=== PATIENT | female | born 1960 | race Caucasian/White ===

== ENCOUNTER → 2016-07-02 | Outpatient (CLI) | payer OTHER ==
[~2016-07-02] MED LIST: ABL/5 PO; ALBU0.5N2 INH; ALBUAER19 INH; ASPI81TA21 PO; ATEN-173 PO; ATOR-14 PO; CLOP1TAB15 PO; CLR10 PO; FERR325T5 PO; HYDR1TAB2 PO; ISOS120T5 PO; MECL1TAB40 PO; MONT1TAB3 PO; NTRGSL/4 UT; OMEG10007 PO; PANT40TA PO; SALI0.6517 NAE; TIOTCAP INH
--- NOTE | 2016-07-02 14:45 | DIAGNOSTIC IMAGING REPORT ---
PA CHEST RADIOGRAPH AND UPRIGHT AND SUPINE AP RADIOGRAPHS OF THE ABDOMEN CLINICAL HISTORY: Right-sided abdominal pain COMPARISON STUDY: No previous studies for comparison. FINDINGS: There are postsurgical findings within the right hemithorax. There is right hemithorax volume loss which is likely postsurgical. Right lower lung opacity is noted, including a 1.9 cm nodular opacity. There is widening of right paratracheal stripe which may be postsurgical. There is no evidence of pulmonary edema. Cardiac size is normal. Mediastinal contours are normal. There is no free air. There are cholecystectomy clips. There are left pelvic surgical clips. The bowel gas pattern is normal. IMPRESSION: 1. No free air or evidence of bowel obstruction. 2. Postsurgical findings within the right hemithorax with expected volume loss. Indeterminate right lower lung opacity, including a 1.9 cm nodular opacity. The findings could reflect an infectious process such as pneumonia. Alternatively, atelectasis or a pulmonary nodule could appear similar. Short-term radiographic follow up is recommended to exclude a pulmonary nodule. Electronically signed by: Ramiro Gonzales M.D. 07/02/2016 2:43 PM Dictated Date/Time: 07/02/2016 2:40 PM
== END | disposition home or self-care (01) ==
LOC: C.RAD1850 14:05
PROVIDERS: ATTEND Nurse Practitioner Family
DX: R10.9 Unspecified abdominal pain (principal); R91.8 Other nonspecific abnormal finding of lung field

== ENCOUNTER → 2016-12-17 | Outpatient (CLI) | payer OTHER ==
--- NOTE | 2016-12-18 15:12 | MAMMOGRAPHY REPORT ---
BILATERAL DIGITAL SCREENING MAMMOGRAM TOMOSYNTHESIS WITH CAD: 12/17/2016 CLINICAL HISTORY: Routine screening. Patient has no complaints. TECHNIQUE: Breast tomosynthesis in addition to standard 2D mammography was performed. Current study was also evaluated with a Computer Aided Detection (CAD) system. COMPARISON: Comparison is made to exams dated: 12/15/2015 mammogram, 08/04/2014 mammogram, 08/03/2013 ma mmogram, 07/31/2012 mammogram - [facility], 07/31/2011 mammogram, and 07/27/2010 mammo gram - [facility]. BREAST COMPOSITION: The tissue of both breasts is heterogeneously dense, which may obscure small mas ses. FINDINGS: There is expected architectural distortion in the upper outer quadrant of the left breast, at the site of prior surgical excision. There are scattered benign calcifications bilaterally. No s uspicious mass, architectural distortion or cluster of microcalcifications is seen. IMPRESSION: ACR BI-RADS CATEGORY 2: BENIGN There is no mammographic evidence of malignancy. A 1 year screening mammogram is recommended. The pa tient will receive written notification of the results. Approximately 10% of breast cancers are not detected with mammography. A negative mammographic report should not delay biopsy if a clinically suggestive mass is present. Ro Riley M.D. ay/:12/17/2016 16:43:00 Division Operations Specialist: Maria Peña, [facility] letter sent: Normal 1/2 BI-RADS Code: ACR BI-RADS Category 2: Benign
== END | disposition home or self-care (01) ==
LOC: C.MAMM 13:09
PROVIDERS: ATTEND Nurse Practitioner Family
DX: Z12.31 Encounter for screening mammogram for malignant neoplasm of breast (principal)

== ENCOUNTER 2017-08-15 16:32 | Emergency (ER) | payer OTHER ==
[~2017-08-15] VITALS: Ht 160 cm; Wt 56.0 kg
[~2017-08-15 16:32] MED LIST changes: +ASPI-319 PO; -ASPI81TA21 PO
[2017-08-15 16:43] VITALS: TEMP 37; Ht 160 cm; Wt 56.0 kg
--- NOTE | 2017-08-15 17:25 | EMERGENCY ROOM VISIT NOTE ---
History First contact with patient: 16:59 Chief Complaint: REFERRED BY DOCTOR Stated Complaint: REFERRAL - JESSICA FREEDMAN History of Present Illness 56F with a PMHx of conservatively managed AAA, Stave IV Lung Ca s/p resection, CA s/p Stets p/w Abdominal pain x 48 hours with ecchymosis over the abdomen. Coughing makes the pain worse. She states that there's a band around her lower abdomen where the pain is. The pain has been worsening since Saturday. She was seen by her PCP and sent her for possible AAA leakage. Pt went to the [place] ER in Saturday where she had a CT of her abdomen that was normal. Per patient [place] labs were significant for an elevated WBC count. Patient states that her IV site from [place] took 2+ hours to stop bleeding which was unusual for her. Yesterday she also noticed some ecchymosis over her abdomen. Patient has never had a bleeding disorder in the past. She has been on ASA and Plavix since 2006 and never had issues with bleeding or bruising. ROS: Diarrhea a few days ago that his improved, some type of sinus infection last week. Pt is here with her daughter and son in law. Daughter is a nurse at [employer] in [place]. 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 Review of Systems See HPI for pertinent positives and negatives. A total of ten systems were reviewed and were otherwise negative. Constitutional: No fever, No chills Respiratory: + shortness of breath, + dyspnea on exertion, + dyspnea at rest , No cough, No sputum, No wheezing Cardiovascular: No chest pain, No edema, No claudication, No palpitations Abdomen: + pain, + diarrhea, No nausea, No vomiting, No constipation Musculoskeletal: No joint pain Genitourinary - Female: No dysuria Neurologic: No memory loss Social History Smoking Status: Current Every Day Smoker Current/Historical Medications Scheduled Albuterol Sulf (Proventil 0.083% 2.5MG/3ML), 2.5 MG INH Q4H Amlodipine (Norvasc), 2.5 MG PO DAILY Amoxicillin (Amoxicillin), 1 TAB PO BID Ampicillin (Ampicillin), 1 CAP PO QID Aspirin Enteric Coated (Ecotrin Or Generic), 81 MG PO DAILY Atenolol (Tenormin), 12.5 MG PO DAILY Atorvastatin (Lipitor), 20 MG PO DAILY Bupropion HCl (Bupropion HCl Sr), 150 MG PO DAILY Cholecalciferol (Vitamin D3), 2,000 INTER.UNIT PO DAILY Clopidogrel (Plavix), 75 MG PO DAILY Estradiol Vaginal (Vagifem), 1 TAB PV 3XWK Ferrous Sulfate (Ferrous Sulfate), 650 MG PO DAILY Fish Oil (Oxford-3), 1,000 MG PO TID Home O2 Therapy (Oxygen), 2-3 LITERS NA UD Isosorbide Mononitrate (Isosorbide Mononitrate ER), 60 MG PO DAILY Levothyroxine Sodium (Levothyroxine Sodium), 25 MCG PEG DAILY Loratadine (Claritin), 10 MG PO DAILY Magnesium Oxide (Mag-Ox), 400 MG PO DAILY Meclizine Hcl (Meclizine Hcl), 12.5 MG PO TID Montelukast Sodium (Singulair), 10 MG PO QPM Pantoprazole (Protonix), 40 MG PO BID Salmeterol Xinafoate (Serevent Diskus), 1 PUFF INH Q12 Tiotropium [place] (Spiriva Respimat), 2 PUFFS INH DAILY Tolterodine Tartrate (Tolterodine Tartrate), 2 MG PO BID Scheduled PRN Albuterol Hfa (Ventolin Hfa), 2 PUFFS INH Q4H PRN for Rescue Nitroglycerin (Nitrostat), 0.4 MG UT UD PRN for Chest Pain Physical Exam Vital Signs Date Time Temp Pulse Resp B/P (MAP) Pulse Ox O2 Delivery O2 Flow Rate FiO2 08/15/17 19:25 73 18 101/65 97 Room Air 08/15/17 18:02 65 14 119/75 98 Nasal Cannula 2.0 08/15/17 16:43 37.0 98 22 112/61 93 Room Air Physical Exam Gen: No acute distress. HEENT: Head - normocephalic and atraumatic. Pupils are equal, round, and reactive to light. Extraocular eye muscles are intact and sclera are anicteric. Ears - bilaterally patent canals with noninjected tympanic membranes and no evidence of hemotympanum. Nose - moist nasal mucosa without discharge. Mouth - moist buccal mucosa. Oropharynx is nonerythematous and there is no tonsillar exudate or edema noted. Neck: Supple; no JVD, nuchal rigidity, cervical lymphadenopathy, or auscultated bruits. Heart: Regular rate and rhythm. There is a normal S1 and S2 with no murmurs, clicks, or gallops appreciated. Lungs: Clear to auscultation bilaterally with no wheezes, rales, or rhonchi. Pt is wearing oxygen. Abdomen: Soft, distended, with good bowel sounds. There are no palpable pulsatile masses or hepatosplenomegaly. There is no guarding, rigidity, or rebound noted. Area of ecchymosis over the midline of her abdomen, from the umbilicus to 3cm above the pubic symphysis, 2cm wide, rectangular shape. There is also a circular 2cm area of ecchymosis over the right abdomen. Abdomen is diffusely TTP in all quadrants. Extremities: No evidence of cyanosis, clubbing, or edema. There are easily palpable peripheral pulses. Neuro:The patient is awake and alert, oriented to day, time, and place. Muscle strength is 5/5 in all 4 extremities. 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 There are no cerebellar signs. Medical Decision & Procedures ER Provider Diagnostic Interpretation: ADDENDUM Upon further review of the case, there is a right rectus sheath hematoma measuring 2.7 x 1.8 cm in transverse and AP dimension. Electronically signed by: Kolton Son M.D. 08/15/2017 7:38 PM Dictated Date/Time: 08/15/2017 7:37 PM ORIGINAL REPORT CHEST COMBO ANGIO DISSECTION, ANGIO ABD/PELVIS WITH CONTRAST HISTORY: 56 years-old Female presents with acute chest and abdominal pain with bruising COMPARISON: Acute abdominal series radiographs 07/02/2016 TECHNIQUE: CTA of the chest, abdomen and pelvis was obtained both with and without the use of 116 mL Optiray 320 IV contrast. 3-D coronal and sagittal MIPS were obtained from the axial data set and were submitted for review. All measurements were obtained according to NASCET criteria. A dose lowering technique was used consistent with the principals of ALARA. FINDINGS: CTA CHEST: No intramural hematoma identified on the noncontrast scan. The heart is normal in size without pericardial effusion. Coronary arterial calcifications are noted without aortic aneurysm or dissection identified. There is moderate mixed plaquing about the thoracic aorta and proximal great vessels which appear patent. There is no thoracic aortic dissection or aneurysm. The pulmonary arterial tree is opacified to level of the subsegmental branches and demonstrates no focal filling defects to suggest pulmonary thromboembolic disease. CT CHEST: Mildly heterogeneous thyroid without dominant nodule identified. Mildly prominent 7 mm AP window lymph node. No pathologic adenopathy identified. Postoperative changes of the right lung with suggested prior right upper and middle lobectomy. Severe upper lung predominant centrilobular emphysema. High attenuating material within the subpleural space of the right lung base suggest prior pleurodesis. Areas of pleural nodularity measuring up to 6 mm suggest pleural disease is changes with scarring. There is a 3 mm solid nodule of the apical posterior segment left upper lobe. Ill-defined groundglass opacities of the lingula suggest atelectasis or scarring. Central airways are patent. Soft tissues are unremarkable. Bones appear intact. Multilevel degenerative changes about the thoracic spine. CTA ABDOMEN/PELVIS: Moderate mixed plaquing of the abdominal aorta with fusiform aneurysmal dilation of the intrarenal segment, 2.9 x 3.1 cm in AP and transverse dimension. No aneurysm dilation of the iliac vasculature. No dissection. The iliac arteries and imaged common femoral, superficial femoral and profunda femoris arteries also appear widely patent. The celiac trunk, superior and inferior mesenteric arteries are widely patent. Mild mixed plaquing at the origin of the renal arteries, left greater than right without high-grade stenosis. Single renal arteries are noted bilaterally. No high-grade stenosis or proximal branch occlusion identified. CT ABDOMEN/PELVIS: Prior cholecystectomy. The liver, spleen, pancreas and adrenal glands are within normal limits. 9 mm low attenuating lesion of the lateral aspect interpolar right kidney suggests renal cyst. Kidneys are otherwise unremarkable. Moderate urinary bladder distention. No obstructive uropathy. Postoperative changes from prior hysterectomy. No adnexal mass lesions identified. It is no bulky adenopathy identified. No bowel obstruction. Colonic diverticulosis without CT evidence of acute diverticulitis. Moderate stool volume suggests constipation. The appendix is not definitively seen. No secondary signs of acute appendicitis. No mesenteric inflammatory changes or ascites. Soft tissues are unremarkable with small fat filled periumbilical hernia, diastases 1.1 cm. Bones appear to be intact. IMPRESSION: 1. Fusiform aneurysmal dilation of the infrarenal abdominal aorta, 2.9 x 3.1 cm without dissection. 2. Moderate mixed plaquing of the aorta without high-grade stenosis or proximal branch occlusion identified. 3. Postoperative changes about the right lung from prior right upper and middle lobectomy with pleurodesis. 4. Emphysema. 5. Suggested constipation. 6. Prior hysterectomy and cholecystectomy. 7. Additional findings as above. Laboratory Results 08/15/17 18:05 Red Blood Count 4.14, Mean Corpuscular Volume 95.2, Mean Corpuscular Hemoglobin 32.1, Mean Corpuscular Hemoglobin Concent 33.8, Mean Platelet Volume 9.5, Neutrophils (%) (Auto) 58.8, Lymphocytes (%) (Auto) 31.6, Monocytes (%) (Auto) 5.7, Eosinophils (%) (Auto) 3.3, Basophils (%) (Auto) 0.4, Neutrophils # (Auto) 5.76, Lymphocytes # (Auto) 3.09, Monocytes # (Auto) 0.56, Eosinophils # (Auto) 0.32, Basophils # (Auto) 0.04 08/15/17 18:05 Test 08/15/17 18:05 08/15/17 18:14 08/15/17 18:25 White Blood Count 9.79 K/uL (4.8-10.8) Red Blood Count 4.14 M/uL (4.2-5.4) Hemoglobin 13.3 g/dL (12.0-16.0) Hematocrit 39.4 % (37-47) Mean Corpuscular Volume 95.2 fL (80-100) Mean Corpuscular Hemoglobin 32.1 pg (25-34) Mean Corpuscular Hemoglobin Concent 33.8 g/dl (32-36) Platelet Count 274 K/uL (130-400) Mean Platelet Volume 9.5 fL (7.4-10.4) Neutrophils (%) (Auto) 58.8 % Lymphocytes (%) (Auto) 31.6 % Monocytes (%) (Auto) 5.7 % Eosinophils (%) (Auto) 3.3 % Basophils (%) (Auto) 0.4 % Neutrophils # (Auto) 5.76 K/uL (1.4-6.5) Lymphocytes # (Auto) 3.09 K/uL (1.2-3.4) Monocytes # (Auto) 0.56 K/uL (0.11-0.59) Eosinophils # (Auto) 0.32 K/uL (0-0.5) Basophils # (Auto) 0.04 K/uL (0-0.2) RDW Standard Deviation 49.0 fL (36.4-46.3) RDW Coefficient of Variation 14.2 % (11.5-14.5) Immature Granulocyte % (Auto) 0.2 % Immature Granulocyte # (Auto) 0.02 K/uL (0.00-0.02) Prothrombin Time 10.7 SECONDS (9.0-12.0) Prothromb Time International Ratio 1.0 (0.9-1.1) Activated Partial Thromboplast Time 25.7 SECONDS (21.0-31.0) Partial Thromboplastin Ratio 1.0 Est Creatinine Clear Calc Drug Dose 47.5 ml/min Estimated GFR () 64.5 Estimated GFR (Non- 55.6 BUN/Creatinine Ratio 6.7 (10-20) Calcium Level 8.5 mg/dl (8.5-10.1) Magnesium Level 2.2 mg/dl (1.8-2.4) Total Bilirubin 0.4 mg/dl (0.2-1) Direct Bilirubin 0.1 mg/dl (0-0.2) Aspartate Amino Transf (AST/SGOT) 19 U/L (15-37) Alanine Aminotransferase (ALT/SGPT) 24 U/L (12-78) Alkaline Phosphatase 66 U/L (45-117) Troponin I < 0.015 ng/ml (0-0.045) Total Protein 6.9 gm/dl (6.4-8.2) Albumin 3.4 gm/dl (3.4-5.0) Bedside Hemoglobin 13.6 g/dl (12.0-16.0) Bedside Hematocrit 40 % (37-47) Bedside Sodium 140 mEq/L (135-144) Bedside Potassium 3.3 mEq/L (3.3-5.0) Bedside Chloride 100 mEq/L (101-112) Bedside Total CO2 29 mEq/l (24-31) Anion Gap 15.0 mmol/L (16-25) Bedside Blood Urea Nitrogen 7 mg/dl (7-18) Bedside Creatinine 1.1 mg/dl (0.6-1.3) Bedside Glucose (other) 96 mg/dl (70-99) Bedside Ionized Calcium (Cee) 1.14 mmol/l (1.12-1.32) Urine Color YELLOW Urine Appearance CLEAR (CLEAR) Urine pH 8.0 (4.5-7.5) Urine Specific [place] 1.008 (1.000-1.030) Urine Protein NEG (NEG) Urine Glucose (UA) NEG (NEG) Urine Ketones NEG (NEG) Urine Occult Blood 1+ (NEG) Urine Nitrite NEG (NEG) Urine Bilirubin NEG (NEG) Urine Urobilinogen NEG (NEG) Urine Leukocyte Esterase NEG (NEG) Urine WBC (Auto) 1-5 /hpf (0-5) Urine RBC (Auto) 5-10 /hpf (0-4) Urine Hyaline Casts (Auto) 0 /lpf (0-5) Urine Epithelial Cells (Auto) 10-20 /lpf (0-5) Urine Bacteria (Auto) 1+ (NEG) Medications Administered Medications (Trade) Dose Ordered Sig/Ninfa Route Start Time Stop Time Status Last Admin Dose Admin Sodium Chloride 1,000 ml @ 200 mls/hr Q5H STAT IV 08/15/17 17:26 08/15/17 22:25 08/15/17 18:04 200 MLS/HR Medical Decision The patient's care and disposition was discussed with Dr. Khan, Attending ED Physician. This is a 56F with belly pain. Differential diagnosis include AAA rupture, platelet disorder, appendicitis, diverticulitis, inflammatory bowel disease, renal colic, PUD, biliary pathology, pancreatitis, mesenteric ischemia, aortic pathology, infections, genitourinary, UTI, perforated viscus, as well as others were entertained. Triage Nursing notes were reviewed. ED Course included an extensive history and physical exam, labs, EKG and imaging. 5:00pm - Pt was seen and examined at bedside. 5:25pm - Case was discussed with Dr. Khan. 7:00pm - Imaging was reviewed with Dr. Khan, 8:00pm - After discussing the case with pharmacy a 10 day course of Amoxicillin was decided upon. Updated patient on results. 8:45pm - Updating patient again regarding results and reiterated the plan. The pt was informed about the findings as listed above. All questions were answered. Return instructions were outlined and the patient was discharged in good condition. The patient was referred to PCP for recheck of the current condition. We recommend tomorrow. Recheck of hemoglobin. Head Trauma GCS Score: 15 Impression Primary Impression: Rectus sheath hematoma Departure Information Dispostion Home / Self-Care Condition GOOD Prescriptions Ampicillin (AMPICILLIN) 500 Mg Cap 1 CAP PO QID for 7 Days, #28 CAP Prov: Edi Mercedes M.D. 08/15/17 Amoxicillin (Amoxicillin) 875 Mg Tab 1 TAB PO BID for 10 Days, #19 TAB Prov: Edi Mercedes M.D. 08/15/17 Referrals Nolvia Freedman (PCP) Patient Instructions My [facility] Additional Instructions There is no leak of your aorta on the CT Scan. The CT Scan did find something called a rectus sheath hematoma. This is a bleed into one of the abdominal muscles. This is likely the source of your abdominal pain. Rectus sheath hematomas can become large and painful. We recommend holding your Aspirin for one week until your abdominal pain resolves. We also recommend that you follow up with your primary care provider tomorrow () for a check of your hemoglobin level. Your hemoglobin level in the ER was 13.3. Your records from [place] were also reviewed. Your urine is growing a bacteria called Enterococcus. After consulting with our pharmacist we recommend taking Ampicillin every 6 hours for 7 days. You have been given a dose of Ampicillin in the ER. Return to the ER if your abdominal pain gets unbearable. We aware that movements such as straining and coughing may worsen your abdominal pain and delay rectus muscle healing. Resident Involvement: Resident Care Provided Care Provided: Adult ED
[2017-08-15] MEDS ORDERED: SODIUM CHLORIDE 0.9% 1000ML 1,000 ML IV STA (17:26)
[2017-08-15] MEDS ORDERED: LEVO25TA5 PEG (17:42)
[2017-08-15] MEDS ORDERED: TOLT2TAB9 PO (17:42)
[2017-08-15] MEDS ORDERED: AMLO2.5T PO (17:42)
[2017-08-15] MEDS ORDERED: SRVDIN60 INH (17:42)
[2017-08-15] MEDS ORDERED: CHOL1000 PO (17:42)
[2017-08-15] MEDS ORDERED: TIOT1SPR INH (17:42)
[2017-08-15] MEDS ORDERED: MAGN400T6 PO (17:42)
[2017-08-15] MEDS ORDERED: VNTHFA/IN INH (17:42)
[2017-08-15] MEDS ORDERED: ISOS-10 PO (17:42)
[2017-08-15] MEDS ORDERED: ALBINS/ INH (17:42)
[2017-08-15] MEDS ORDERED: WLLSR150 PO (17:42)
[2017-08-15] MEDS ORDERED: ESTR10TA PV (17:42)
[2017-08-15] MEDS ORDERED: LPT20 PO (17:42)
[2017-08-15] MEDS ORDERED: OXGN (17:44)
[2017-08-15 18:16] LABS: BASO % 0.4 %; BASO ABS # 0.04 K/uL (0-0.2); EOS % 3.3 %; EOS ABS # 0.32 K/uL (0-0.5); HEMATOCRIT 39.4 % (37-47); HEMOGLOBIN 13.3 g/dL (12.0-16.0); IG# 0.02 K/uL (0.00-0.02); LYMPH % 31.6 %; LYMPH ABS # 3.09 K/uL (1.2-3.4); MEAN CELL VOLUME 95.2 fL (80-100); MEAN CORPUSCULAR HEMOGLOBIN 32.1 pg (25-34); MEAN CORPUSCULAR HGB CONC 33.8 g/dl (32-36); MEAN PLATELET VOLUME 9.5 fL (7.4-10.4); MONO % 5.7 %; MONO ABS # 0.56 K/uL (0.11-0.59); NEUT % 58.8 %; NEUT ABS # 5.76 K/uL (1.4-6.5); PLATELET COUNT 274 K/uL (130-400); RED CELL DISTRIBUTION WIDTH CV 14.2 % (11.5-14.5); WHITE BLOOD COUNT 9.79 K/uL (4.8-10.8)
[2017-08-15 18:25] LABS: ISTAT CREATININE 1.1 mg/dl (0.6-1.3); ISTAT IONIZED CALCIUM 1.14 mmol/l (1.12-1.32); ISTAT POTASSIUM 3.3 mEq/L (3.3-5.0)
[2017-08-15 18:31] LABS: PTT PATIENT 25.7 SECONDS (21.0-31.0)
[2017-08-15 18:33] LABS: ALBUMIN 3.4 gm/dl (3.4-5.0); ALT/SGPT 24 U/L (12-78); AST/SGOT 19 U/L (15-37); BLOOD UREA NITROGEN 8 mg/dl (7-18); CALCIUM 8.5 mg/dl (8.5-10.1); CARBON DIOXIDE 31 mmol/L (21-32); CREATININE 1.12 mg/dl (0.60-1.20); GLUCOSE 94 mg/dl (70-99); POTASSIUM 3.3 mmol/L (3.5-5.1); SODIUM 140 mmol/L (136-145)
[2017-08-15 18:38] LABS: ALKALINE PHOSPHATASE 66 U/L (45-117); TOTAL PROTEIN 6.9 gm/dl (6.4-8.2)
[2017-08-15] MEDS ORDERED: OPTIRAY 320 IV PRN (19:00)
--- NOTE | 2017-08-15 19:22 | DIAGNOSTIC IMAGING REPORT ---
ADDENDUM Upon further review of the case, there is a right rectus sheath hematoma measuring 2.7 x 1.8 cm in transverse and AP dimension. Electronically signed by: Kolton Son M.D. 08/15/2017 7:38 PM Dictated Date/Time: 08/15/2017 7:37 PM ORIGINAL REPORT CHEST COMBO ANGIO DISSECTION, ANGIO ABD/PELVIS WITH CONTRAST HISTORY: 56 years-old Female presents with acute chest and abdominal pain with bruising COMPARISON: Acute abdominal series radiographs 07/02/2016 TECHNIQUE: CTA of the chest, abdomen and pelvis was obtained both with and without the use of 116 mL Optiray 320 IV contrast. 3-D coronal and sagittal MIPS were obtained from the axial data set and were submitted for review. All measurements were obtained according to NASCET criteria. A dose lowering technique was used consistent with the principals of SHERRY. FINDINGS: CTA CHEST: No intramural hematoma identified on the noncontrast scan. The heart is normal in size without pericardial effusion. Coronary arterial calcifications are noted without aortic aneurysm or dissection identified. There is moderate mixed plaquing about the thoracic aorta and proximal great vessels which appear patent. There is no thoracic aortic dissection or aneurysm. The pulmonary arterial tree is opacified to level of the subsegmental branches and demonstrates no focal filling defects to suggest pulmonary thromboembolic disease. CT CHEST: Mildly heterogeneous thyroid without dominant nodule identified. Mildly prominent 7 mm AP window lymph node. No pathologic adenopathy identified. Postoperative changes of the right lung with suggested prior right upper and middle lobectomy. Severe upper lung predominant centrilobular emphysema. High attenuating material within the subpleural space of the right lung base suggest prior pleurodesis. Areas of pleural nodularity measuring up to 6 mm suggest pleural disease is changes with scarring. There is a 3 mm solid nodule of the apical posterior segment left upper lobe. Ill-defined groundglass opacities of the lingula suggest atelectasis or scarring. Central airways are patent. Soft tissues are unremarkable. Bones appear intact. Multilevel degenerative changes about the thoracic spine. CTA ABDOMEN/PELVIS: Moderate mixed plaquing of the abdominal aorta with fusiform aneurysmal dilation of the intrarenal segment, 2.9 x 3.1 cm in AP and transverse dimension. No aneurysm dilation of the iliac vasculature. No dissection. The iliac arteries and imaged common femoral, superficial femoral and profunda femoris arteries also appear widely patent. The celiac trunk, superior and inferior mesenteric arteries are widely patent. Mild mixed plaquing at the origin of the renal arteries, left greater than right without high-grade stenosis. Single renal arteries are noted bilaterally. No high-grade stenosis or proximal branch occlusion identified. CT ABDOMEN/PELVIS: Prior cholecystectomy. The liver, spleen, pancreas and adrenal glands are within normal limits. 9 mm low attenuating lesion of the lateral aspect interpolar right kidney suggests renal cyst. Kidneys are otherwise unremarkable. Moderate urinary bladder distention. No obstructive uropathy. Postoperative changes from prior hysterectomy. No adnexal mass lesions identified. It is no bulky adenopathy identified. No bowel obstruction. Colonic diverticulosis without CT evidence of acute diverticulitis. Moderate stool volume suggests constipation. The appendix is not definitively seen. No secondary signs of acute appendicitis. No mesenteric inflammatory changes or ascites. Soft tissues are unremarkable with small fat filled periumbilical hernia, diastases 1.1 cm. Bones appear to be intact. IMPRESSION: 1. Fusiform aneurysmal dilation of the infrarenal abdominal aorta, 2.9 x 3.1 cm without dissection. 2. Moderate mixed plaquing of the aorta without high-grade stenosis or proximal branch occlusion identified. 3. Postoperative changes about the right lung from prior right upper and middle lobectomy with pleurodesis. 4. Emphysema. 5. Suggested constipation. 6. Prior hysterectomy and cholecystectomy. 7. Additional findings as above. The above report was generated using voice recognition software. It may contain grammatical, syntax or spelling errors. Electronically signed by: Kolton Son M.D. 08/15/2017 7:21 PM Dictated Date/Time: 08/15/2017 6:58 PM
[2017-08-15] MEDS ORDERED: AMOXICILLIN 250 MG CAP PO ONE (20:15)
[2017-08-15] MEDS ORDERED: AMX875 PO (20:47)
[2017-08-15] MEDS ORDERED: AMPI500C9 PO (20:55)
[2017-08-15] MEDS ORDERED: AMPICILLIN 250 MG CAP PO STA (21:06)
[2017-08-15 21:39] VITALS: BP 101/75; PULSE 67; O2SAT 96
--- NOTE | 2017-08-16 16:37 | EMERGENCY ROOM VISIT NOTE ---
ED Visit Note First contact with patient: 16:56 Resident Physician Supervision Note: I interviewed and examined the patient. Discussed with Dr. Mercedes and agree with findings and plan as documented in the note. Any exceptions or clarifications are listed here: See HPI for pertinent positives & negatives. A total of 10 systems reviewed and were otherwise negative. CT scan of the abdomen and pelvis was performed and is significant for a rectus sheath hematoma, umbilical hernia. There is no evidence of bowel obstruction. Patient likely is suffering from just comfort of the rectus sheath. She is also found to have a UTI with cultures from the outside hospital. Cultures reveal enterococcus. Patient was initially written a prescription for amoxicillin which was canceled. The patient was placed on oral ampicillin and will be discharged to follow-up with PCP for hemoglobin recheck and reevaluation this week. She will return to the emergency department for worsening of symptoms or any medical concerns. Patient and daughter expressed an understanding of the instructions and agree. Dx: Rectus Sheath Hematoma, UTI Documented By: Charlotte Khan
== END 2017-08-15 21:35 | disposition home or self-care (01) ==
LOC: C.EDB 16:33 → C.EDC 21:35
DX: M79.81 Nontraumatic hematoma of soft tissue (principal); N39.0 Urinary tract infection, site not specified; K42.9 Umbilical hernia without obstruction or gangrene; F17.210 Nicotine dependence, cigarettes, uncomplicated; Z79.82 Long term (current) use of aspirin; Z79.01 Long term (current) use of anticoagulants; Z99.81 Dependence on supplemental oxygen; Z79.899 Other long term (current) drug therapy; Z79.1 Long term (current) use of non-steroidal anti-inflammatories (NSAID); Z79.51 Long term (current) use of inhaled steroids

== ENCOUNTER 2017-08-18 21:00 | Emergency (ER) | payer OTHER ==
[~2017-08-18] VITALS: Ht 162.6 cm; Wt 56.0 kg
[~2017-08-18 21:00] MED LIST changes: -ABL/5 PO; +ALBINS/ INH; -ALBU0.5N2 INH; -ALBUAER19 INH; +AMLO2.5T PO; +AMPI500C9 PO; -ATOR-14 PO; +CHOL1000 PO; +ESTR10TA PV; -HYDR1TAB2 PO; +ISOS-10 PO; -ISOS120T5 PO; +LEVO25TA5 PEG; +LPT20 PO; +MAGN400T6 PO; +OXGN; -SALI0.6517 NAE; +SRVDIN60 INH; +TIOT1SPR INH; -TIOTCAP INH; +TOLT2TAB9 PO; +VNTHFA/IN INH; +WLLSR150 PO
[2017-08-18 21:03] VITALS: TEMP 36.9; Ht 162.6 cm; Wt 56.0 kg
[2017-08-18] MEDS ORDERED: MoRPHine SULFATE 2 MG/ML CARP IV STA (22:04)
[2017-08-18 22:34] LABS: BASO % 0.3 %; BASO ABS # 0.03 K/uL (0-0.2); EOS % 5.2 %; EOS ABS # 0.46 K/uL (0-0.5); HEMATOCRIT 37.1 % (37-47); HEMOGLOBIN 12.6 g/dL (12.0-16.0); IG# 0.02 K/uL (0.00-0.02); LYMPH % 30.9 %; LYMPH ABS # 2.74 K/uL (1.2-3.4); MEAN CELL VOLUME 94.4 fL (80-100); MEAN CORPUSCULAR HEMOGLOBIN 32.1 pg (25-34); MEAN PLATELET VOLUME 9.6 fL (7.4-10.4); MONO % 7.3 %; MONO ABS # 0.65 K/uL (0.11-0.59); NEUT % 56.1 %; NEUT ABS # 4.98 K/uL (1.4-6.5); PLATELET COUNT 250 K/uL (130-400); RED CELL DISTRIBUTION WIDTH CV 13.8 % (11.5-14.5); RED CELL DISTRIBUTION WIDTH SD 48.2 fL (36.4-46.3); WHITE BLOOD COUNT 8.88 K/uL (4.8-10.8)
[2017-08-18 22:52] LABS: ALBUMIN 3.4 gm/dl (3.4-5.0); CALCIUM 8.6 mg/dl (8.5-10.1); CREATININE 1.38 mg/dl (0.60-1.20); POTASSIUM 3.8 mmol/L (3.5-5.1)
[2017-08-18 22:54] LABS: TOTAL PROTEIN 6.9 gm/dl (6.4-8.2)
--- NOTE | 2017-08-18 23:38 | EMERGENCY ROOM VISIT NOTE ---
History First contact with patient: 21:33 Chief Complaint: BACK PAIN Stated Complaint: BACK PAIN History of Present Illness The patient is a 56 year old female who presents to the Emergency Room with complaints of low back pain. The patient reports that she has had low back pain since yesterday. She reports that she had a cold a few weeks ago and was coughing frequently. She then developed some abdominal bruising and went to the [place] emergency department. She had a CT scan and was told that nothing was wrong. She states the bruising worsened and she was seen here 2 days later and diagnosed with a rectus sheath hematoma. She reports that she has an abdominal aortic aneurysm and was concerned about leaking from the aneurysm. She states that her back has been aching last night and today. She does have a history of chronic low back pain. She states that she did not do anything that she felt would exacerbate her pain. She rates her discomfort as 7 /10. She does feel some abdominal bloating after eating but denies any abdominal pain at this time. She takes Plavix daily and has been holding her aspirin since being diagnosed with the hematoma. She is scheduled to see her primary care provider this week. She has never had surgeries on her aortic aneurysm. Review of Systems A complete 10 point review of systems was reviewed with the patient with pertinent positives and negatives as per history of present illness. All else were negative. Past Medical/Surgical History Medical Problems: (1) Abdominal aortic aneurysm (2) Lung cancer Social History Smoking Status: Current Every Day Smoker Housing Status: lives with family Current/Historical Medications Scheduled Albuterol Sulf (Proventil 0.083% 2.5MG/3ML), 2.5 MG INH Q4H Amlodipine (Norvasc), 2.5 MG PO DAILY Ampicillin (Ampicillin), 1 CAP PO QID Aspirin Enteric Coated (Ecotrin Or Generic), 81 MG PO DAILY Atenolol (Tenormin), 12.5 MG PO DAILY Atorvastatin (Lipitor), 20 MG PO DAILY Bupropion HCl (Bupropion HCl Sr), 150 MG PO DAILY Cholecalciferol (Vitamin D3), 2,000 INTER.UNIT PO DAILY Clopidogrel (Plavix), 75 MG PO DAILY Estradiol Vaginal (Vagifem), 1 TAB PV 3XWK Ferrous Sulfate (Ferrous Sulfate), 650 MG PO DAILY Fish Oil (Tyronza-3), 1,000 MG PO TID Home O2 Therapy (Oxygen), 2-3 LITERS NA UD Isosorbide Mononitrate (Isosorbide Mononitrate ER), 60 MG PO DAILY Levothyroxine Sodium (Levothyroxine Sodium), 25 MCG PEG DAILY Loratadine (Claritin), 10 MG PO DAILY Magnesium Oxide (Mag-Ox), 400 MG PO DAILY Meclizine Hcl (Meclizine Hcl), 12.5 MG PO TID Montelukast Sodium (Singulair), 10 MG PO QPM Pantoprazole (Protonix), 40 MG PO BID Salmeterol Xinafoate (Serevent Diskus), 1 PUFF INH Q12 Tiotropium [place] (Spiriva Respimat), 2 PUFFS INH DAILY Tolterodine Tartrate (Tolterodine Tartrate), 2 MG PO BID Scheduled PRN Albuterol Hfa (Ventolin Hfa), 2 PUFFS INH Q4H PRN for Rescue Nitroglycerin (Nitrostat), 0.4 MG UT UD PRN for Chest Pain Physical Exam Vital Signs Date Time Temp Pulse Resp B/P (MAP) Pulse Ox O2 Delivery O2 Flow Rate FiO2 08/18/17 23:49 65 15 116/69 99 08/18/17 22:56 64 15 107/71 98 Nasal Cannula 2.0 08/18/17 21:03 36.9 88 20 126/86 95 Nasal Cannula 2.0 Physical Exam VITALS: Vitals are noted on the nurse's note and reviewed by myself. Vital signs stable. GENERAL: This is a 56-year-old female, in no acute distress, nondiaphoretic, well-developed well-nourished. SKIN: There is ecchymosis to the abdomen in the suprapubic area as well as the right mid to lower abdomen. NECK: Supple without nuchal rigidity. No JVD. HEART: Regular rate and rhythm without murmurs gallops or rubs. LUNGS: Clear to auscultation bilaterally without wheezes, rales or rhonchi. ABDOMEN: Soft, nontender to palpation. MUSCULOSKELETAL: There is mild, vague tenderness to the lumbar region bilaterally. NEURO: Patient was alert and oriented to person place and time. Distal pulses intact. Medical Decision & Procedures Laboratory Results 08/18/17 22:20 Red Blood Count 3.93, Mean Corpuscular Volume 94.4, Mean Corpuscular Hemoglobin 32.1, Mean Corpuscular Hemoglobin Concent 34.0, Mean Platelet Volume 9.6, Neutrophils (%) (Auto) 56.1, Lymphocytes (%) (Auto) 30.9, Monocytes (%) (Auto) 7.3, Eosinophils (%) (Auto) 5.2, Basophils (%) (Auto) 0.3, Neutrophils # (Auto) 4.98, Lymphocytes # (Auto) 2.74, Monocytes # (Auto) 0.65, Eosinophils # (Auto) 0.46, Basophils # (Auto) 0.03 08/18/17 22:20 Test 08/18/17 22:20 White Blood Count 8.88 K/uL (4.8-10.8) Red Blood Count 3.93 M/uL (4.2-5.4) Hemoglobin 12.6 g/dL (12.0-16.0) Hematocrit 37.1 % (37-47) Mean Corpuscular Volume 94.4 fL (80-100) Mean Corpuscular Hemoglobin 32.1 pg (25-34) Mean Corpuscular Hemoglobin Concent 34.0 g/dl (32-36) Platelet Count 250 K/uL (130-400) Mean Platelet Volume 9.6 fL (7.4-10.4) Neutrophils (%) (Auto) 56.1 % Lymphocytes (%) (Auto) 30.9 % Monocytes (%) (Auto) 7.3 % Eosinophils (%) (Auto) 5.2 % Basophils (%) (Auto) 0.3 % Neutrophils # (Auto) 4.98 K/uL (1.4-6.5) Lymphocytes # (Auto) 2.74 K/uL (1.2-3.4) Monocytes # (Auto) 0.65 K/uL (0.11-0.59) Eosinophils # (Auto) 0.46 K/uL (0-0.5) Basophils # (Auto) 0.03 K/uL (0-0.2) RDW Standard Deviation 48.2 fL (36.4-46.3) RDW Coefficient of Variation 13.8 % (11.5-14.5) Immature Granulocyte % (Auto) 0.2 % Immature Granulocyte # (Auto) 0.02 K/uL (0.00-0.02) Urine Color YELLOW Urine Appearance ERROR (CLEAR) Urine pH 6.5 (4.5-7.5) Urine Specific [place] 1.014 (1.000-1.030) Urine Protein NEG (NEG) Urine Glucose (UA) NEG (NEG) Urine Ketones NEG (NEG) Urine Occult Blood 2+ (NEG) Urine Nitrite NEG (NEG) Urine Bilirubin NEG (NEG) Urine Urobilinogen NEG (NEG) Urine Leukocyte Esterase NEG (NEG) Urine WBC (Auto) 1-5 /hpf (0-5) Urine RBC (Auto) 10-30 /hpf (0-4) Urine Hyaline Casts (Auto) 1-5 /lpf (0-5) Urine Epithelial Cells (Auto) 20-30 /lpf (0-5) Urine Bacteria (Auto) NEG (NEG) Anion Gap 9.0 mmol/L (3-11) Est Creatinine Clear Calc Drug Dose 40.3 ml/min Estimated GFR () 50.1 Estimated GFR (Non- 43.2 BUN/Creatinine Ratio 9.8 (10-20) Calcium Level 8.6 mg/dl (8.5-10.1) Total Bilirubin 0.3 mg/dl (0.2-1) Aspartate Amino Transf (AST/SGOT) 15 U/L (15-37) Alanine Aminotransferase (ALT/SGPT) 19 U/L (12-78) Alkaline Phosphatase 61 U/L (45-117) Total Protein 6.9 gm/dl (6.4-8.2) Albumin 3.4 gm/dl (3.4-5.0) Globulin 3.5 gm/dl (2.5-4.0) Albumin/Globulin Ratio 1.0 (0.9-2) Medications Administered Medications (Trade) Dose Ordered Sig/Ninfa Route Start Time Stop Time Status Last Admin Dose Admin Morphine Sulfate (MoRPHine SULFATE INJ) 2 mg NOW STAT IV 08/18/17 22:04 08/18/17 22:05 DC 08/18/17 22:32 2 MG Medical Decision Differential diagnosis includes ruptured AAA, UTI, kidney stone, musculoskeletal pain, diverticulitis, colitis, among others. The patient is a 56-year-old female who presents today complaining of low back pain. The patient was seen here 3 days ago. These records were reviewed. At that time, she had CTA which showed no dissection or leaking from her aneurysm. The patient became concerned because of some low back pain. Apparently, the patient's daughter contacted her PCP who told her to come here to be checked. I do not feel that this low back pain is due to a ruptured aneurysm or dissection. Patient has intact distal pulses. Blood pressure is within normal limits. Labs were performed and show a hemoglobin of 12.6, not significantly decreased from previous. I recommended that the patient follow-up with her primary care provider tomorrow for a recheck. The patient's case was reviewed with Dr. Portilol, ED attending physician, who agreed with my assessment and treatment plan. Based on the patient's presentation and work up, I feel the patient is stable for outpatient treatment. The patient was educated to return to the emergency department for any worsening of their current condition or new/concerning symptoms. She will follow up with her PCP. Medication Reconcilliation Current Medication List: was personally reviewed by me Blood Pressure Screening Patient's blood pressure: Normal blood pressure Impression Primary Impression: Lumbar back pain Departure Information Dispostion Home / Self-Care Condition GOOD Referrals Nolvia Oden (PCP) Patient Instructions My [facility] Additional Instructions Continue Tylenol as needed for pain. Contact your primary care provider tomorrow to schedule a follow-up appointment. Ideally, you could follow up tomorrow for a recheck in the office. Return to the emergency department with significantly worsening pain, vomiting, weakness or any other new/concerning symptoms.
[2017-08-18 23:49] VITALS: BP 116/69; PULSE 65; O2SAT 99
== END 2017-08-18 23:50 | disposition home or self-care (01) ==
LOC: C.EDB 21:01
DX: M54.5 Low back pain (principal); F17.200 Nicotine dependence, unspecified, uncomplicated; I71.4 Abdominal aortic aneurysm, without rupture; Z79.82 Long term (current) use of aspirin